=== PATIENT | male | born 1945 | race Caucasian/White ===

== ENCOUNTER 2020-08-04 07:04 | Inpatient (IN) | payer OTHER, MEDICARE ==
[2020-08-03 13:30] VITALS: BMI 34.0
[2020-08-04] MEDS ORDERED: GENTAMICIN SO4 80 MG/2 ML VIAL ONE (11:06)
[2020-08-04] MEDS ORDERED: LIDOCAINE 1%/EPI 1:100000 (50 ML MULTI DOSE VIAL) ONE (11:06)
[2020-08-04] MEDS ORDERED: fentaNYL CITRATE 250 MCG/5 ML VIAL ONE (11:10)
[2020-08-04] MEDS ORDERED: THROMBIN (BOVINE) 20,000 UNIT VIAL TP ONE (11:10)
[2020-08-04] MEDS ORDERED: PROPOFOL 20 ML ONE ×2 (11:10→13:06)
[2020-08-04] MEDS ORDERED: ceFAZolin SODIUM 1 GM VIAL IVPB ONE (11:30)
--- NOTE | 2020-08-04 11:30 | HP ---
History & Physical Update - History History: No Change - Physical Physical: No Change - Assessment Assessment: No Change - Plan Plan: No Change
[2020-08-04] MEDS ORDERED: VANCOMYCIN 1,000 MG VIAL (RESTRICTED TO ID ONLY) IVPB ONE (11:32)
[2020-08-04] MEDS ORDERED: LIDOCAINE 1%/EPI 1:100000 (20 ML MULTI DOSE VIAL) IJ ONE (12:05)
[2020-08-04] MEDS ORDERED: GLYCOPYRROLATE 0.2 MG/1 ML VIAL ONE ×3 (12:48→13:13)
[2020-08-04] MEDS ORDERED: NEOSTIGMINE METHYLSULFATE 0.5 MG/1 ML - 10 ML MDV ONE (12:48)
[2020-08-04] MEDS ORDERED: LIDOCAINE HCL/PF 2% SDV 5ML VIAL ONE (13:13)
[2020-08-04] MEDS ORDERED: VANCOMYCIN 1,000 MG VIAL (RESTRICTED TO ID ONLY) ONE (13:13)
[2020-08-04] MEDS ORDERED: ceFAZolin SODIUM 1 GM VIAL ONE ×2 (13:13→21:04)
[2020-08-04] MEDS ORDERED: DEXAMETHASONE SOD PHOSPHATE 4 MG/1 ML VIAL ONE (13:13)
[2020-08-04] MEDS ORDERED: LIDOCAINE HCL 2% JELLY (5 ML/TUBE) ONE (13:13)
[2020-08-04] MEDS ORDERED: ONDANSETRON 4 MG/2 ML VIAL ONE (13:13)
[2020-08-04] MEDS ORDERED: ONDANSETRON 4 MG/2 ML VIAL IVPUSH PRN (13:50)
[2020-08-04] MEDS ORDERED: CODEINE SO4 30 MG TABLET PO PRN (13:50)
[2020-08-04] MEDS ORDERED: SODIUM CHLORIDE 1,000 ML IV SCH (14:00)
--- NOTE | 2020-08-04 14:04 | OP ---
Operative Note - Note: Operative Date: 08/04/20 Pre-Operative Diagnosis: normal pressure hydrocephalus Operation: R Ventriculo-Peritoneal shunt Surgeon: Trevor Maciel Employment Case Manager: Shanthi Castillo Anesthesiologist/TOP EDGE BEVELER: Leroy Dodge Anesthesia: General Estimated Blood Loss (mls): 10 Drains, Volume Out (mls): 300 (boss) Fluid Volume Replaced (mls): 600 Operative Report Dictated: Yes
[2020-08-04] MEDS ORDERED: INSULIN SLIDING SCALE (NOVOLOG) 1 VIAL SQ SCH (16:30)
[2020-08-04] MEDS: DOCUSATE SODIUM 100 MG CAPSULE (FP) PO SCH ×2 (16:55→22:11)
[2020-08-04] MEDS: ACETAMINOPHEN 325 MG TABLET (FP) PO SCH ×2 (16:56→23:00)
[2020-08-04] MEDS: INSULIN SLIDING SCALE (NOVOLOG) 1 VIAL SQ SCH ×2 (17:03→22:19)
--- NOTE | 2020-08-04 17:36 | PN ---
Progress Note (short form) - Note Progress Note: xxxxxxxxxxxxxxxxxxxxxxxxxxxxxxxxxxxxxxxxxxx MEDICAL NOTE xxxxxxx xxxxxxxxxxxxxxxxxxxxxxxxxxxxxxxxx Active Medications Acetaminophen (Tylenol -) 650 mg PO Q6H [facility] Stop: 08/05/20 11:01 Last Admin: 08/04/20 16:56 Dose: 650 mg Documented by: Amlodipine Besylate (Norvasc -) 5 mg PO DAILY [facility] Aspirin (Ecotrin -) 81 mg PO DAILY [facility] Atorvastatin Calcium (Lipitor -) 20 mg PO HS [facility] Codeine Sulfate (Codeine Sulfate -) 60 mg PO Q4H PRN PRN Reason: PAIN LEVEL 1-5 Docusate Sodium (Colace -) 100 mg PO TID [facility] Last Admin: 08/04/20 16:55 Dose: 100 mg Documented by: Furosemide (Lasix -) 20 mg PO DAILY [facility] Heparin Sodium (Porcine) (Heparin -) 5,000 unit SQ BID [facility] Cefazolin Sodium 1 gm/ (Dextrose) 50 mls @ 100 mls/hr IVPB Q8H [facility] Sodium Chloride (Normal Saline -) 1,000 mls @ 75 mls/hr IV ASDIR [facility] Last Admin: 08/04/20 16:58 Dose: 75 mls/hr Documented by: Insulin Aspart (Novolog Vial Sliding Scale -) 1 vial SQ ACHS [facility]; Protocol Last Admin: 08/04/20 17:03 Dose: Not Given Documented by: Metoprolol Succinate (Toprol Xl -) 50 mg PO DAILY [facility] Ondansetron HCl (Zofran Injection) 4 mg IVPUSH Q6H PRN PRN Reason: NAUSEA Paroxetine HCl (Paxil -) 10 mg PO DAILY [facility] Tamsulosin HCl (Flomax -) 0.4 mg PO DAILY@0830 [facility] Laboratory Results - last 24 hr 08/04/20 08/04/20 08/04/20 08:00 08:52 09:25 POC Glucometer 132 Blood Type O NEGATIVE O NEGATIVE Antibody Screen Negative Crossmatch See Detail 08/04/20 17:00 POC Glucometer 101 Blood Type Antibody Screen Crossmatch Vital Signs Temperature 97.6 F 08/04/20 14:57 Pulse Rate 68 08/04/20 14:57 Respiratory Rate 10 10/08/20 14:57 Blood Pressure 103/34 L 08/04/20 14:57 O2 Sat by Pulse Oximetry (%) 99 08/04/20 14:57 CC: none post OP ```````````````````` skin--with scalp dressing eyes--midline; eomi oral--no droop neck--supple, no masses heart--RR abd--soft, benign ext--no edema; limited ROM on digits of both hands (contractures) neuro-- some psychomotor slowing; good eye contact, able to answer coherently, follows commands; no gross motor deficits. ```````````````````````````````````````````````````````````````````````````````` `````````````` Summ > NPH--longstanding, now s/p PROPERTY SUPERVISOR shunting; mgmt as per surgeonl family wishes to go home and have VNS rehab > Htn--BP presently low; and getting NS as well as Lasix; will stop the CCB for now; cont the BB; will check BMP in Am > Pre-DM--BS in low 100's > BPH--on Tamsusolin > Lipidemia--on statin ~~~~~~~~~~~~~~~~ Dr Pool (covering for Dr Sims)
[2020-08-04] MEDS ORDERED: DEXTROSE 5%-WATER - 50 ML IVPB ONE (21:04)
[2020-08-04] MEDS ORDERED: ATORVASTATIN CA 20 MG TABLET (FP) PO SCH (22:00)
[2020-08-04] MEDS: CEFAZOLIN 1 GM in DEXTROSE 5%-WATER - 50 ML IVPB SCH (22:11)
[2020-08-04] MEDS: HEPARIN NA (PORCINE) 5,000 UNITS/ML 1ML VIAL SQ SCH (22:11)
[2020-08-05] MEDS: ACETAMINOPHEN 325 MG TABLET (FP) PO SCH ×3 (00:25→13:22)
[2020-08-05] MEDS ORDERED: ceFAZolin SODIUM 1 GM VIAL ONE (04:03)
[2020-08-05] MEDS ORDERED: DEXTROSE 5%-WATER - 50 ML IVPB ONE (04:04)
[2020-08-05] MEDS: CEFAZOLIN 1 GM in DEXTROSE 5%-WATER - 50 ML IVPB SCH (04:07)
[2020-08-05] MEDS: DOCUSATE SODIUM 100 MG CAPSULE (FP) PO SCH ×2 (06:13→13:23)
[2020-08-05] MEDS: INSULIN SLIDING SCALE (NOVOLOG) 1 VIAL SQ SCH ×2 (06:15→13:17)
--- NOTE | 2020-08-05 07:23 | CON.CARD ---
Consult Consult Specialty:: cardiology Reason for Consultation:: CAD risks; pre-op ADVERTISING CLERK surgery - History of Present Illness History of Present Illness: Mr Killian is a 75 yr old man with PMH NPHydrochephalus, HLD, HTN, obesity, BPH, now admitted for ADVERTISING CLERK shunt surgery. - History Source History Provided By: Medical Record, Caregiver (Pt's PMD (Dr. Sims)) Limitations to Obtaining History: No Limitations - Past Medical History Cardio/Vascular: Yes: HTN, Hyperlipdemia - Smoking History Smoking history: Never smoked Home Medications - Allergies Allergies/Adverse Reactions: Allergies Allergy/AdvReac Type Severity Reaction Status Date / Time No Known Allergies Allergy Verified 08/03/20 13:30 - Home Medications Home Medications: Ambulatory Orders Amlodipine Besylate [Norvasc -] 5 mg PO DAILY 08/03/20 Atorvastatin Ca [Lipitor] 20 mg PO HS 08/03/20 Furosemide [Lasix -] 20 mg PO DAILY 08/03/20 Metoprolol Succinate [Toprol Xl] 50 mg PO DAILY 08/03/20 Paroxetine HCl [Paxil] 10 mg PO DAILY 08/03/20 Tamsulosin HCl 0.4 mg PO DAILY 08/03/20 metFORMIN HCL [Metformin HCl] 500 mg PO BID 08/03/20 Aspirin [Aspirin EC] 81 mg PO DAILY 08/04/20 Vital Signs: Vital Signs Temperature 98.3 F 08/05/20 06:00 Pulse Rate 79 08/05/20 06:00 Respiratory Rate 18 08/05/20 06:00 Blood Pressure 134/73 08/05/20 06:00 O2 Sat by Pulse Oximetry (%) 98 08/05/20 06:00 Assessment/Plan NAVAL DESIGNER Hydrocephalus: surgery (ADVERTISING CLERK shunt) today HTN HLD Obesity BPH Rec: Hydration (on IV fluids) Continue metoprolol; f/u BP and HR CXR: no acute pathology F/u CT head post-op Pain management
--- NOTE | 2020-08-05 07:58 | PN ---
Progress Note (short form) - Note Progress Note: Surgery: Pt states that has a slight headache this am. No abd pain. No nausea Vital Signs Period Temp Pulse Resp BP Sys/[place] Pulse Ox Last 24 Hr 97.1 F-98.3 F 58-89 08-16 87-139/29-79 94-99 GEN: Alert and follows commands. Neuro: speaking in sinhala/gabonese this am. FOllows commands. 5/5 dorsi/plantar flexion b/l. No calf tenderness or swelling noted b/l. Oil Expert strength equal b/l Laboratory Tests 08/04/20 08/05/20 22:17 06:12 POC Glucometer 137 107 CBC, BMP 08/05/20 07:51 08/05/20 07:51 A/P: 75 yo male s/p Right TRANSPORTATION MAINTENANCE OPERATOR shunt, POD#1 For NPH Pt doing well clinically Patient care and plan D/w Dr. Maciel, surgically stable. Discharge planning as per the medical team, discharge instructions completed in the chart. Keep area clean and dry. Follow up with Dr. Maciel as an outpt in 1 to 2 weeks PT consult placed for assessment for possible home services if needed
[2020-08-05] MEDS ORDERED: TAMSULOSIN HCL 0.4 MG CAP PO SCH (08:30)
--- NOTE | 2020-08-05 09:08 | PN ---
Progress Note, Physician History of Present Illness: Mr Killian is a 75 yr old man with PMH NPHydrochephalus, HLD, HTN, obesity, BPH, now admitted for AUDIENCE DEVELOPMENT MANAGER shunt surgery. - Current Medication List Current Medications: Active Medications Acetaminophen (Tylenol -) 650 mg PO Q6H [facility] Stop: 08/05/20 11:01 Last Admin: 08/05/20 06:13 Dose: 650 mg Documented by: Aspirin (Ecotrin -) 81 mg PO DAILY [facility] Atorvastatin Calcium (Lipitor -) 20 mg PO HS [facility] Last Admin: 08/04/20 22:11 Dose: 20 mg Documented by: Codeine Sulfate (Codeine Sulfate -) 60 mg PO Q4H PRN PRN Reason: PAIN LEVEL 1-5 Docusate Sodium (Colace -) 100 mg PO TID [facility] Last Admin: 08/05/20 06:13 Dose: 100 mg Documented by: Heparin Sodium (Porcine) (Heparin -) 5,000 unit SQ BID [facility] Last Admin: 08/04/20 22:11 Dose: 5,000 unit Documented by: Cefazolin Sodium 1 gm/ (Dextrose) 50 mls @ 100 mls/hr IVPB Q8H [facility] Last Admin: 08/05/20 04:07 Dose: 100 mls/hr Documented by: Insulin Aspart (Novolog Vial Sliding Scale -) 1 vial SQ ACHS [facility]; Protocol Last Admin: 08/05/20 06:15 Dose: Not Given Documented by: Metoprolol Succinate (Toprol Xl -) 50 mg PO DAILY [facility] Ondansetron HCl (Zofran Injection) 4 mg IVPUSH Q6H PRN PRN Reason: NAUSEA Paroxetine HCl (Paxil -) 10 mg PO DAILY [facility] Tamsulosin HCl (Flomax -) 0.4 mg PO DAILY@0830 [facility] - Objective Vital Signs: Vital Signs Temperature 98.3 F 08/05/20 06:00 Pulse Rate 79 08/05/20 06:00 Respiratory Rate 18 08/05/20 06:00 Blood Pressure 134/73 08/05/20 06:00 O2 Sat by Pulse Oximetry (%) 98 08/05/20 06:00 Eyes: Yes: WNL, Conjunctiva Clear, EOM Intact HENT: Yes: WNL, Atraumatic, Normocephalic Neck: Yes: WNL, Supple, Trachea Midline Cardiovascular: Yes: WNL, Regular Rate and Rhythm Respiratory: Yes: WNL, Regular, CTA Bilaterally Gastrointestinal: Yes: WNL, Normal Bowel Sounds Genitourinary: Yes: WNL Musculoskeletal: Yes: WNL Extremities: Yes: WNL Edema: No Integumentary: Yes: WNL Assessment/Plan DIRECTOR NURSING SERVICE Hydrocephalus: surgery (AUDIENCE DEVELOPMENT MANAGER shunt) today HTN HLD Obesity BPH Rec: Hydration (on IV fluids) Continue metoprolol; f/u BP and HR CXR: no acute pathology F/u CT head post-op Pain management
[2020-08-05 09:09] LABS: HEMATOCRIT 39.4 % (35.4-49); HEMOGLOBIN 13.5 GM/dL (11.7-16.9); MCH 30.3 pg (25.7-33.7); MCHC 34.3 g/dl (32.0-35.9); MEAN CELL VOLUME 88.3 fl (80-96); MEAN PLT VOLUME 11.2 fl (7.5-11.1); PLATELET COUNT 119 K/MM3 (134-434); RBC 4.46 M/mm3 (4.00-5.60); RDW 12.1 % (11.9-15.9)
[2020-08-05] MEDS: HEPARIN NA (PORCINE) 5,000 UNITS/ML 1ML VIAL SQ SCH (09:19)
[2020-08-05 09:21] LABS: BLOOD UREA NITROGEN 14.4 mg/dL (7-18); CALCIUM 8.9 mg/dL (8.5-10.1); CREATININE 0.9 mg/dL (0.55-1.3); POTASSIUM 3.7 mmol/L (3.5-5.1)
[2020-08-05] MEDS ORDERED: amLODIPine BESYLATE 5 MG TABLET (FP) PO SCH ×2 (10:00)
[2020-08-05] MEDS ORDERED: FUROSEMIDE 20 MG TABLET (FP) PO SCH (10:00)
[2020-08-05] MEDS ORDERED: ASPIRIN COATED 81 MG TABLET.EC PO SCH (10:00)
[2020-08-05] MEDS ORDERED: PARoxetine HCL 10 MG TABLET PO SCH (10:00)
--- NOTE | 2020-08-05 12:38 | DS ---
Physical Examination Vital Signs: Vital Signs Temperature 98.7 F 08/05/20 09:00 Pulse Rate 90 08/05/20 09:00 Respiratory Rate 20 08/05/20 09:00 Blood Pressure 114/60 08/05/20 09:00 O2 Sat by Pulse Oximetry (%) 93 L 08/05/20 09:00 Constitutional: Yes: Well Nourished, No Distress, Calm Eyes: Yes: Conjunctiva Clear, EOM Intact Cardiovascular: Yes: Regular Rate and Rhythm Respiratory: Yes: Regular Gastrointestinal: Yes: Soft Neurological: Yes: WNL, Alert, Oriented ...Motor Strength: WNL Labs: CBC, BMP 08/05/20 07:51 08/05/20 07:51 Discharge Summary Problems reviewed: Yes Reason For Visit: NORMAL PRESSURE HYDROCEPHALUS htn with CAD lipidemia BPH DM Procedures: Principal: LABORATORY CHEMICAL ASSISTANT shunt Hospital Course: underwent LABORATORY CHEMICAL ASSISTANT shunt w/o complications; amlodpine stopped due to low BP state.Cleared by surgery for D/c Health Concerns: home safety Plan of Treatment: VNS eval Goals: improve gait & fall prevention Condition: Stable - Instructions Diet, Activity, Other Instructions: POST-OPERATIVE INSTRUCTIONS Diet: You may resume your regular diet. If you have Diabetes be sure to control your sugars as high sugar levels can increase your risk of infection. Increase your fluid and fiber intake to avoid constipation which may be caused by narcotic pain medications. Pain control: You may take Tylenol or acetaminophen. Any pain prescription medication ordered should be taken as prescribed for moderate to severe pain. Incision care: You may shower in 72 hours with a waterproof dressing only. When showering, use mild shampoo (Baby shampoo works well) and allow the shampoo and water to run over your incision. Do not scrub the incision. When done showering, make sure to pat the incision completely dry. Your gay will be removed at your post-operative appointment. Do not submerge your incision in water (swimming, baths, etc.) for four weeks after surgery. Lifting: Do not lift, push, or pull more than 5 pounds for four weeks after surgery. Activity: It is important to get out of bed and move as soon as possible after surgery to avoid developing problems such as blood clots or pneumonia. Walk with assistance if you feel unsteady. Get plenty of rest. Avoid rigorous activity for 4 weeks after surgery. You may walk for exercise. You must have someone home with you at all times (24 hours per day) until otherwise instructed by your surgeon. Driving: Do not drive until cleared by your surgeon. You may experience: Constipation: This is a common problem after surgery due to anesthesia, inactivity, and prescription pain medications. It is helpful to increase water, fresh fruits and vegetables, fiber and bran in your diet. Also, you may take [id number] docusate sodium tablets, 100 mg 1 to 2 times per day to keep your stools soft. You may decrease the amount taken if your stools become too soft. If constipation is not relieved with these measures, you may take Milk of Magnesia (if no kidney disease), 1 to 2 tablespoons every 12 hours. If this doesnt work, it is recommended that you use an enema or rectal suppository to assist with evacuation of the rectum. This is preferred over heavy straining. If an enema or rectal suppository is not successful, please notify us the office. Call your surgeons office immediately or report to the ED if you experience: A temperature of 101 degrees or higher. Chills with shivering Worsening headaches or neck stiffness Confusion or changes in behavior Persistent vomiting. Inability to keep down food or fluids. Increasing redness, swelling, and drainage of blood or fluid from an incision site. Inability to urinate or have a bowel movement. Increasing drowsiness Seizures Follow up: Call the office to confirm a post-operative appointment for 2-3 weeks post-op Trevor Maciel MD [facility] [place] [address] `````````````````````````````````````````` call Dr Sims for appt stop Amlodipine and Furosemide for now until seen by Dr Sims; continue all other medication Tylenol for headache do not disturb dressing No driving no exertional activities no alcoholic drinks Referrals: Trevor Maciel MD, FA[facility] [Staff Physician] - Disposition: VNS/HOME HEALTH CARE - Home Medications Comprehensive Discharge Medication List: Ambulatory Orders metFORMIN HCL [Metformin HCl] 500 mg PO BID 08/03/20 Aspirin [Aspirin EC] 81 mg PO DAILY 08/04/20 Atorvastatin Ca [Lipitor] 20 mg PO HS tablet 08/05/20 Furosemide [Lasix -] 20 mg PO DAILY tablet 08/05/20 Metoprolol Succinate [Toprol XL -] 50 mg PO DAILY tab.sr.24h 08/05/20 Paroxetine HCl [Paxil -] 10 mg PO DAILY tablet 08/05/20 Tamsulosin HCl [Flomax -] 0.4 mg PO DAILY@0830 cap.er.24h 08/05/20
--- NOTE | 2020-08-05 12:45 | PN ---
Progress Note (short form) - Note Progress Note: Anesthesia Post op Pt seen and examined S:Alert and awake mild pain O: Vital Signs Temperature 98.7 F 08/05/20 09:00 Pulse Rate 90 08/05/20 09:00 Respiratory Rate 20 08/05/20 09:00 Blood Pressure 114/60 08/05/20 09:00 O2 Sat by Pulse Oximetry (%) 93 L 08/05/20 09:00 CBC, BMP 08/05/20 07:51 08/05/20 07:51 A/P:HAUL DRIVER shunt s/p Doing well post op Continue current care Husam Jones MD
[2020-08-05 13:45] VITALS: BP 156/81; PULSE 84; TEMP 98.3
== END 2020-08-05 15:03 | disposition home health service (06) | DRG 33 ==
LOC: J2C 07:04 → J8W 15:27
PROVIDERS: ADMIT Internal Medicine Hematology & Oncology; ATTEND Internal Medicine Hematology & Oncology
PROC: 00160J6 Bypass Cerebral Ventricle to Peritoneal Cavity with Synthetic Substitute, Open Approach (ICD-10-PCS; principal; 2020-08-04 10:30)
DX: G91.2 (Idiopathic) normal pressure hydrocephalus (principal); I10 Essential (primary) hypertension; N40.0 Benign prostatic hyperplasia without lower urinary tract symptoms; E66.9 Obesity, unspecified; Z68.34 Body mass index [BMI] 34.0-34.9, adult; E78.5 Hyperlipidemia, unspecified; R73.03 Prediabetes
CPT/HCPCS: 36415; 70450-TC; 71046-TC-FY; 80048; 80053; 81003; 82607; 82962; 83036; 84443; 85025; 85027; 85610; 85730; 86850; 86900; 86901; 86922; 94010; 94760; 97116-GP; 97161-GP; C9803; J1644; U0003

== ENCOUNTER 2020-08-23 04:09 | Day surgery (SDC) | payer OTHER, MEDICARE ==
[2020-08-22 08:44] VITALS: BMI 32.9
[2020-08-23] MEDS ORDERED: LIDOCAINE HCL/PF 2% SDV 5ML VIAL ONE (07:21)
[2020-08-23] MEDS ORDERED: ONDANSETRON 4 MG/2 ML VIAL ONE (07:21)
[2020-08-23] MEDS ORDERED: MIDAZOLAM HCL 2 MG/2 ML SINGLE DOSE VIAL ONE (07:21)
[2020-08-23] MEDS ORDERED: fentaNYL CITRATE 250 MCG/5 ML VIAL ONE (07:21)
[2020-08-23] MEDS ORDERED: DEXAMETHASONE SOD PHOSPHATE 4 MG/1 ML VIAL ONE (07:21)
[2020-08-23] MEDS ORDERED: PROPOFOL 20 ML ONE ×2 (07:21→11:35)
[2020-08-23] MEDS ORDERED: ROCURONIUM BROMIDE 50 MG/5 ML SYRINGE ONE (07:21)
[2020-08-23] MEDS ORDERED: SUCCINYLCHOLINE CHLORIDE 200 MG/10 ML SYRINGE ONE (07:21)
[2020-08-23] MEDS ORDERED: LIDOCAINE 1%/EPI 1:100000 (50 ML MULTI DOSE VIAL) ONE (07:32)
[2020-08-23] MEDS ORDERED: GENTAMICIN SO4 80 MG/2 ML VIAL ONE (07:32)
[2020-08-23] MEDS ORDERED: THROMBIN (BOVINE) 20,000 UNIT VIAL TP ONE (07:46)
--- NOTE | 2020-08-23 08:01 | HP ---
History & Physical Update - History History: No Change - Physical Physical: No Change - Assessment Assessment: No Change - Plan Plan: No Change
[2020-08-23] MEDS ORDERED: ceFAZolin 2 GRAM PREMIX BAG IVPB ONE (08:19)
[2020-08-23] MEDS ORDERED: VANCOMYCIN 1,000 MG VIAL (RESTRICTED TO ID ONLY) ONE (08:20)
[2020-08-23] MEDS ORDERED: VANCOMYCIN 1,000 MG VIAL (RESTRICTED TO ID ONLY) IVPB ONE (08:20)
[2020-08-23] MEDS ORDERED: ceFAZolin SODIUM 1 GM VIAL ONE (08:21)
[2020-08-23] MEDS ORDERED: EPHEDRINE SULFATE/0.9% NACL/PF 50 MG/10 ML SYRINGE NR ONE (08:23)
[2020-08-23] MEDS ORDERED: BACITRACIN/POLYMYXIN OPH OINT 3.5 GM TUBE ONE (08:24)
[2020-08-23] MEDS ORDERED: BACITRACIN 15 GM TUBE TOPICAL OINTMENT ONE (08:25)
[2020-08-23] MEDS ORDERED: LIDOCAINE 1%/EPI 1:100000 (20 ML MULTI DOSE VIAL) IJ ONE (08:30)
[2020-08-23] MEDS ORDERED: BACITRACIN 50,000 UNITS VIAL NR ONE (08:44)
[2020-08-23] MEDS ORDERED: GENTAMICIN SO4 80 MG/2 ML VIAL IVPB ONE (08:44)
[2020-08-23] MEDS ORDERED: ACETAMINOPHEN 325 MG TABLET (FP) PO ONE (09:46)
--- NOTE | 2020-08-23 09:56 | OP ---
Operative Note - Note: Operative Date: 08/23/20 Pre-Operative Diagnosis: normal pressure hydrocephalus, migration of distal catheter Operation: s/p revision of distal LAST SAWYER shunt Surgeon: Trevor Maciel Electrical Appliance Servicer: Shanthi Castillo Anesthesiologist/PUBLIC HEALTH PROFESSOR: Maris Prado Anesthesia: General Estimated Blood Loss (mls): 5 Drains, Volume Out (mls): 50 (boss) Fluid Volume Replaced (mls): 500 Operative Report Dictated: Yes
[2020-08-23] MEDS ORDERED: oxyCODONE HCL 5 MG TABLET PO PRN ×2 (10:23)
[2020-08-23] MEDS ORDERED: ONDANSETRON 4 MG/2 ML VIAL IVPUSH PRN (10:23)
[2020-08-23] MEDS ORDERED: LACTATED RINGERS SOLUTION 1,000 ML IV SCH (10:30)
[2020-08-23] MEDS ORDERED: GLYCOPYRROLATE 0.2 MG/1 ML VIAL ONE (11:16)
[2020-08-23] MEDS ORDERED: KETOROLAC TROMETHAMINE 30 MG/1 ML VIAL ONE (11:16)
[2020-08-23] MEDS ORDERED: NEOSTIGMINE METHYLSULFATE 0.5 MG/ML - 10 ML MDV ONE (11:17)
[2020-08-23 14:06] VITALS: BP 123/87; PULSE 82; TEMP 97.8
--- NOTE | 2020-09-01 13:34 | SURG ---
Surgery Conveyor Man Note Conveyor Man: Shanthi Castillo PA-C Date of Service: 08/23/20 Diagnosis: normal pressure hydrocephalus with distal shunt migration Procedure: ventricular peritoneal shunt distal revision I was present for the entirety of the operative procedure. For further detail, please refer to operative report. Visit type - Case Type Case Type: Scheduled - Emergency Emergency Visit: No - New patient This patient is new to me today: Yes Date on this admission: 08/23/20
== END 2020-08-23 12:45 | disposition home or self-care (01) | DRG 27 ==
LOC: JASU-SURG 04:09 → J2C 04:09 → UNDOADMIN 04:09 → EDSTATUS 08:00 → JASU-SURG 12:45 → UNDODISIN 12:45
PROVIDERS: ATTEND Neurological Surgery
PROC: 0WWG0JZ Revision of Synthetic Substitute in Peritoneal Cavity, Open Approach (ICD-10-PCS; principal; 2020-08-23 08:00)
DX: T85.09XA Other mechanical complication of ventricular intracranial (communicating) shunt, initial encounter (principal); G91.2 (Idiopathic) normal pressure hydrocephalus; N40.0 Benign prostatic hyperplasia without lower urinary tract symptoms; F03.90 Unspecified dementia, unspecified severity, without behavioral disturbance, psychotic disturbance, mood disturbance, and anxiety; E11.9 Type 2 diabetes mellitus without complications; I10 Essential (primary) hypertension; Z79.84 Long term (current) use of oral hypoglycemic drugs
CPT/HCPCS: 82962; 86922; 94760

== ENCOUNTER 2024-01-15 19:07 | Observation (INO) | payer OTHER, MEDICARE ==
[2024-01-15 19:25] VITALS: RESP 18; BMI 31.6
[2024-01-15 20:26] LABS: BASO % 0.4 % (0-2.0); EOS % 3.5 % (0-4.5); HEMATOCRIT 42.2 % (35.4-49); HEMOGLOBIN 14.6 GM/dL (11.7-16.9); LYMPH % 16.1 % (8-40); MCH 31.2 pg (25.7-33.7); MCHC 34.5 g/dl (32.0-35.9); MEAN CELL VOLUME 90.4 fl (80-96); MEAN PLT VOLUME 10.1 fl (7.5-11.1); MONO % 15.1 % (3.8-10.2); NEUT % 64.9 % (42.8-82.8); PLATELET COUNT 161 10^3/uL (134-434); RBC 4.67 M/mm3 (4.00-5.60); RDW 13.2 % (11.9-15.9); WHITE BLOOD COUNT 4.8 K/mm3 (4.0-10.0)
[2024-01-15 20:44] LABS: INR 1.03 (0.83-1.09)
[2024-01-15 20:47] LABS: ACTIVATED PTT 28.1 SECONDS (25.2-36.5)
[2024-01-15 20:49] LABS: POTASSIUM 4.2 mmol/L (3.5-5.1)
[2024-01-15 20:53] LABS: ALBUMIN 4.2 g/dl (3.4-5.0); BLOOD UREA NITROGEN 15.6 mg/dL (7-18); CALCIUM 9.6 mg/dL (8.5-10.1)
[2024-01-15 20:56] LABS: CREATININE 0.9 mg/dL (0.55-1.3)
[2024-01-15 20:58] LABS: BILIRUBIN,TOTAL 0.5 mg/dL (0.2-1); TOT PROT 7.4 g/dl (6.4-8.2)
[2024-01-15 21:31] LABS: URINE APPEARANCE CLEAR; URINE BILIRUBIN NEGATIVE (NEGATIVE); URINE COLOR YELLOW; URINE GLUCOSE (UA) 3+ (NEGATIVE); URINE KETONE NEGATIVE (NEGATIVE); URINE LEUK ESTERASE NEGATIVE (NEGATIVE); URINE NITRITE NEGATIVE (NEGATIVE); URINE PROTEIN NEGATIVE (NEGATIVE); URINE UROBILINOGEN 0.2 mg/dL (0.2-1.0)
[2024-01-15] MEDS ORDERED: ACETAMINOPHEN 325 MG TABLET (FP) PO PRN (22:49)
[2024-01-15] MEDS ORDERED: DOCUSATE SODIUM 100 MG CAPSULE (FP) PO PRN (22:49)
[2024-01-16] MEDS: INSULIN ASPART SLIDING SCALE (NOVOLOG) 1 VIAL SQ SCH (06:23)
[2024-01-16 07:38] LABS: BASO % 0.3 % (0-2.0); HEMATOCRIT 37.3 % (35.4-49); HEMOGLOBIN 12.7 GM/dL (11.7-16.9); LYMPH % 17.1 % (8-40); MCH 30.6 pg (25.7-33.7); MCHC 33.9 g/dl (32.0-35.9); MEAN CELL VOLUME 90.3 fl (80-96); MEAN PLT VOLUME 10.5 fl (7.5-11.1); MONO % 15.3 % (3.8-10.2); NEUT % 60.3 % (42.8-82.8); PLATELET COUNT 136 10^3/uL (134-434); RBC 4.13 M/mm3 (4.00-5.60)
[2024-01-16 08:05] LABS: BLOOD UREA NITROGEN 13.6 mg/dL (7-18); CALCIUM 8.9 mg/dL (8.5-10.1)
[2024-01-16 08:09] LABS: CREATININE 0.7 mg/dL (0.55-1.3); PHOSPHOROUS 4.1 mg/dL (2.5-4.9)
[2024-01-16] MEDS: ASPIRIN COATED 81 MG TABLET.EC PO SCH (09:51)
[2024-01-16] MEDS: VALSARTAN 160 MG TABLET PO SCH (09:51)
[2024-01-16] MEDS: PARoxetine HCL 10 MG TABLET PO SCH (10:20)
[2024-01-16] MEDS: ATORVASTATIN CA 20 MG TABLET (FP) PO SCH (21:35)
[2024-01-17] MEDS: TAMSULOSIN HCL 0.4 MG CAP PO SCH (08:15)
[2024-01-17 12:23] VITALS: PULSE 62
[2024-01-17 15:50] VITALS: BP 137/67; TEMP 97.3
== END 2024-01-17 18:33 | disposition home health service (06) ==
LOC: JER 19:07 → JERBED 22:46 → J4S 01-16 02:36
PROVIDERS: ADMIT Internal Medicine; ATTEND Family Medicine
DX: R55 Syncope and collapse (principal); I25.10 Atherosclerotic heart disease of native coronary artery without angina pectoris; F03.90 Unspecified dementia, unspecified severity, without behavioral disturbance, psychotic disturbance, mood disturbance, and anxiety; G91.9 Hydrocephalus, unspecified; E78.5 Hyperlipidemia, unspecified; I11.0 Hypertensive heart disease with heart failure; E11.9 Type 2 diabetes mellitus without complications; G91.2 (Idiopathic) normal pressure hydrocephalus; Z98.2 Presence of cerebrospinal fluid drainage device
CPT/HCPCS: 36415; 70450-TC; 70551-TC; 71045-TC-FY; 80048; 80053; 81003; 82962; 83735; 84100; 84439; 84443; 84484; 85025; 85610; 85730; 86850; 86900; 86901; 93005; 93010; 99285-25; G0378

== ENCOUNTER 2024-09-10 13:29 | Emergency (ER) | payer OTHER, MEDICARE ==
[2024-09-10 13:49] VITALS: TEMP 97.9; BMI 31.4
[2024-09-10 14:39] LABS: BASO % 0.7 % (0-2.0); EOS % 12.8 % (0-4.5); HEMATOCRIT 37.8 % (35.4-49); HEMOGLOBIN 13.1 GM/dL (11.7-16.9); LYMPH % 23.9 % (8-40); MCH 31.3 pg (25.7-33.7); MCHC 34.7 g/dl (32.0-35.9); MEAN CELL VOLUME 90.2 fl (80-96); MEAN PLT VOLUME 9.7 fl (7.5-11.1); MONO % 11.8 % (3.8-10.2); NEUT % 50.8 % (42.8-82.8); PLATELET COUNT 104 10^3/uL (134-434); RBC 4.19 M/mm3 (4.00-5.60); RDW 13.2 % (11.9-15.9); VENOUS BASE EXCESS 3.5 mmol/L (-2-2); VENOUS O2 SATURATION 38.3 % (70-80); VENOUS PCO2 54.5 mmHg (38-52); VENOUS PH 7.361 (7.310-7.410); WHITE BLOOD COUNT 3.7 K/mm3 (4.0-10.0)
[2024-09-10 15:04] LABS: POTASSIUM 4.8 mmol/L (3.5-5.1)
[2024-09-10 15:06] LABS: ALBUMIN 3.4 g/dl (3.4-5.0)
[2024-09-10 15:07] LABS: BLOOD UREA NITROGEN 16.1 mg/dL (7-18); CALCIUM 9.6 mg/dL (8.5-10.1); MAGNESIUM 2.4 mg/dL (1.8-2.4)
[2024-09-10 15:10] LABS: PHOSPHOROUS 2.9 mg/dL (2.5-4.9)
[2024-09-10 15:11] LABS: BILIRUBIN,TOTAL 0.3 mg/dL (0.2-1); TOT PROT 6.1 g/dl (6.4-8.2)
[2024-09-10 16:17] VITALS: RESP 20
[2024-09-10 16:22] LABS: URINE APPEARANCE CLEAR; URINE BILIRUBIN NEGATIVE (NEGATIVE); URINE COLOR YELLOW; URINE GLUCOSE (UA) 3+ (NEGATIVE); URINE KETONE TRACE (NEGATIVE); URINE LEUK ESTERASE NEGATIVE (NEGATIVE); URINE NITRITE NEGATIVE (NEGATIVE); URINE PROTEIN NEGATIVE (NEGATIVE); URINE UROBILINOGEN 0.2 mg/dL (0.2-1.0)
[2024-09-10 16:32] LABS: HIV INTERPRETATION NEGATIVE (NEGATIVE)
[2024-09-10 18:30] VITALS: BP 144/73; PULSE 78
== END 2024-09-10 18:47 | disposition home or self-care (01) ==
LOC: JER 13:29
DX: I95.9 Hypotension, unspecified (principal); F03.90 Unspecified dementia, unspecified severity, without behavioral disturbance, psychotic disturbance, mood disturbance, and anxiety; Z20.822 Contact with and (suspected) exposure to COVID-19
CPT/HCPCS: 0241U-QW; 36415; 70450-TC; 71045-TC-FY; 80053; 81003; 82803; 83735; 84100; 85025; 86803; 87077; 87086; 87389; 93005; 93010; 99285-25